=== PATIENT | male | born 1990 | race Caucasian/White ===

== ENCOUNTER 2017-05-19 08:40 | Emergency (ER) | payer BC ==
[~2017-05-19] VITALS: Ht 177.8 cm; Wt 95.8 kg
[~2017-05-19 08:40] MED LIST: KEFLEX500 MG PO
[2017-05-19 11:44] LABS: HEMATOCRIT 36.9 % (38.0-50.0); MCH 28.8 PG (29.0-34.0); MCHC 33.3 G/DL (30.0-36.0); MCV 86.4 FL (86-99); MEAN PLAT.VOLUME 9.1 uM^3 (9.0-12.4); PLATELET COUNT 335 K/uL (156-360); RBC DIS.WIDTH-CV 13.4 % (11.8-14.6); RBC DIS.WIDTH-SD 41.5 % (39-53); RED BLOOD COUNT 4.27 M/uL (4.00-5.50); WHITE BLOOD COUNT 10.2 K/uL (4.1-10.2)
[2017-05-19 11:59] LABS: CHLORIDE 108 mEq/L (99-109); POTASSIUM 3.9 mEq/L (3.7-5.4); SODIUM 140 mEq/L (136-147)
[2017-05-19 12:01] LABS: GLUCOSE 94 mg/dL (70-99)
[2017-05-19 12:02] LABS: ANION GAP 9 MEQ/L (2-14)
[2017-05-19 12:05] LABS: GFR ESTIMATE (CALCULATED) > 59 mL/min/; UREA NITROGEN (BUN) 11 mg/dL (9-23)
[2017-05-19] MEDS ORDERED: PROTOPIC 0.1% O30 GM PO (16:19)
[2017-05-19 17:09] VITALS: BP 164/83
== END 2017-05-19 17:11 | disposition home or self-care (01) ==
LOC: EME 08:40
PROVIDERS: Nurse Practitioner Family
DX: Z43.2 Encounter for attention to ileostomy (principal); K50.10 Crohn's disease of large intestine without complications
CPT/HCPCS: 74177; 80048; 85027; 99281; 99284

== ENCOUNTER 2017-05-21 12:49 | Emergency (ER) | payer BC ==
[~2017-05-21] VITALS: Ht 177.8 cm; Wt 95.5 kg
[~2017-05-21 12:49] MED LIST changes: +PROTOPIC 0.1% O30 GM PO
[2017-05-21 13:21] LABS: HEMATOCRIT 40.4 % (38.0-50.0); MCH 28.3 PG (29.0-34.0); MCHC 32.7 G/DL (30.0-36.0); MCV 86.7 FL (86-99); MEAN PLAT.VOLUME 8.9 uM^3 (9.0-12.4); PLATELET COUNT 366 K/uL (156-360); RBC DIS.WIDTH-CV 13.4 % (11.8-14.6); RBC DIS.WIDTH-SD 42.2 % (39-53); RED BLOOD COUNT 4.66 M/uL (4.00-5.50); WHITE BLOOD COUNT 12.5 K/uL (4.1-10.2)
[2017-05-21 13:29] LABS: CHLORIDE 107 mEq/L (99-109); POTASSIUM 4.1 mEq/L (3.7-5.4); SODIUM 140 mEq/L (136-147)
[2017-05-21 13:32] LABS: GLUCOSE 109 mg/dL (70-99)
[2017-05-21 13:33] LABS: ANION GAP 9 MEQ/L (2-14)
[2017-05-21 13:34] LABS: TOTAL BILIRUBIN 0.4 mg/dL (0.0-1.0)
[2017-05-21 13:35] LABS: ALKALINE PHOSPHATASE 117 IU/L (3-129)
[2017-05-21 13:36] LABS: GFR ESTIMATE (CALCULATED) > 59 mL/min/
[2017-05-21 13:37] LABS: UREA NITROGEN (BUN) 11 mg/dL (9-23)
[2017-05-21 15:58] LABS: ADD MIUA? NO; BILIRUBIN NEGATIVE; BLOOD NEGATIVE; COLOR STRAW ((YELLOW)); GLUCOSE (STRIP) NEGATIVE; KETONES NEGATIVE; LEUKOCYTES NEGATIVE; NITRITE NEGATIVE; PROTEIN (STRIP) NEGATIVE; SPECIFIC GRAVITY 1.008 (1.000-1.030); UCUL ADDED? NO; UROBILINOGEN 0.2 MG/DL (0.2-1.0)
[2017-05-21 21:05] VITALS: BP 157/77
== END 2017-05-21 21:06 | disposition home or self-care (01) ==
LOC: EME 12:49
DX: Z43.3 Encounter for attention to colostomy (principal); K50.90 Crohn's disease, unspecified, without complications; Z83.3 Family history of diabetes mellitus
CPT/HCPCS: 74177; 80053; 81003; 85027; 99281; 99284; J3010; J7030